=== PATIENT | male | born 1950 | race Caucasian/White ===

== ENCOUNTER 2017-06-23 06:00 | Inpatient (IN) | payer MEDICARE ==
[2017-06-09 11:05] LABS: BASOPHILS % 0.5 % (0.0-1.0); EOSINOPHILS # (AUTO) 0.3 (0.0-0.4); HEMATOCRIT 39.2 % (38.2-49.6); HEMOGLOBIN 13.2 g/dL (14.0-18.0); LYMPHOCYTES # (AUTO) 2.3 (1.0-3.2); LYMPHOCYTES % 29.4 % (18.0-39.1); MEAN CORPUSCULAR HEMOGLOBIN 31.2 pg (28-32); MEAN CORPUSCULAR HGB CONC 33.7 g/dL (31-35); MEAN CORPUSCULAR VOLUME 92.7 fL (81-99); MONOCYTES # (AUTO) 0.7 (0.2-0.8); MONOCYTES % 9.1 % (4.4-11.3); NEUTROPHILS # (AUTO) 4.4 (2.1-6.9); NEUTROPHILS % 56.6 % (38.7-80.0); PLATELET COUNT 268 x10e3/uL (140-360); RED BLOOD COUNT 4.23 x10e6/uL (4.3-5.7); RED CELL DISTRIBUTION WIDTH 13.8 % (11.7-14.4)
[2017-06-09 11:15] LABS: INR 0.87; PROTHROMBIN TIME 12.3 seconds (11.9-14.5)
[2017-06-09 11:22] LABS: ANION GAP 16.2 mmol/L (8-16); CALCIUM 9.9 mg/dL (8.4-10.2); CREATININE, SERUM 1.42 mg/dL (0.72-1.25); POTASSIUM 5.2 mmol/L (3.5-5.1)
[~2017-06-23] VITALS: Ht 172.7 cm; Wt 77.7 kg
[2017-06-23] MEDS ORDERED: OMEPRAZOLE40 MG PO (06:38)
[2017-06-23] MEDS ORDERED: LOSARTAN POTAS100 MG PO (06:38)
[2017-06-23] MEDS ORDERED: CILOSTAZOL100 MG PO (06:38)
[2017-06-23] MEDS ORDERED: ASPIRIN81 MG PO (06:38)
[2017-06-23] MEDS ORDERED: METOPROLOL TART25 MG PO (06:38)
[2017-06-23] MEDS ORDERED: AMLODIPINE BESY10 MG PO (06:38)
[2017-06-23] MEDS ORDERED: LOVASTATIN40 MG PO (06:38)
[2017-06-23 06:48] VITALS: BP 173/88
[2017-06-23] MEDS ORDERED: LIDOCAINE HCL 2% LOCAL 20 ML VIAL ONE ×2 (06:51→07:48)
[2017-06-23] MEDS ORDERED: IOPAMIDOL 370 MG/ML 200 ML INFUS..BTL INJ ONE ×3 (06:52→08:07)
[2017-06-23] MEDS ORDERED: HEPARIN SOD/SOD CHLORIDE 2,000 ML ONE (06:52)
[2017-06-23] MEDS ORDERED: FENTANYL CITRATE/PF 100MCG/2 ML INJ ONE (07:03)
[2017-06-23] MEDS ORDERED: HEPARIN SOD (PORCINE) 1000 UNIT/ML 30ML ONE (07:03)
[2017-06-23] MEDS ORDERED: SODIUM CHLORIDE 0.9% 1000ML 1,000 ML ONE (07:04)
[2017-06-23] MEDS ORDERED: MIDAZOLAM HCL 2 MG/2 ML VIAL ONE (07:04)
[2017-06-23] MEDS ORDERED: NITROGLYCERIN/D5W 200 MCG/ML 250 ML ONE (07:04)
[2017-06-23] MEDS ORDERED: BIVALIRUDIN 250 MG/VIAL IV ONE (07:56)
[2017-06-23] MEDS ORDERED: SODIUM CHLORIDE 0.9% 50ML 50 ML ONE (07:57)
[2017-06-23] MEDS ORDERED: ASPIRIN 325 MG TAB ONE (09:02)
[2017-06-23] MEDS ORDERED: CLOPIDOGREL BISULFATE 75 MG TAB ONE (09:02)
--- NOTE | 2017-06-23 10:05 | Operative Report ---
DATE OF PROCEDURE: June 23, 2017 PROCEDURES PERFORMED 1. Left heart catheterization. 2. Selective coronary angiogram. 3. Stent placement in the right coronary artery and obtuse marginal. INDICATIONS: Abnormal stress test. BLOOD LOSS: 10 mL. ANESTHESIA: One mg of Versed and 0.25 mg of fentanyl and 2% lidocaine for local anesthesia. DESCRIPTION OF PROCEDURE: After informed consent, the patient was brought to the cardiac catheterization laboratory and placed on the table. Both groins were painted and draped in a sterile fashion. Lidocaine injected in the right groin for local anesthesia. The right femoral artery was accessed by Seldinger technique, and a 5-Nepalese sheath was placed in the right femoral artery. However, the wire would not advance beyond the iliac region. The iliac artery was totally occluded. The left groin was painted and draped in a sterile fashion. Lidocaine injected in the left groin for local anesthesia. Left femoral artery was accessed by Seldinger technique, and a 5-Nepalese sheath was placed in the left femoral artery. Left main artery was cannulated using a JL4 5-Nepalese catheter. Coronary angiogram was performed and images obtained multiple views. The right coronary artery was cannulated using a 3DRC 5-Nepalese catheter. Coronary angiogram was performed and images were obtained in multiple views. The left main was cannulated using a 5-Nepalese sheath and the left main was cannulated using a 4-Nepalese catheter. Coronary angiogram was performed and images obtained in multiple views. Right coronary artery was cannulated using a 3DRC 5-Nepalese catheter. Coronary angiogram was performed and images obtained in multiple views. After reviewing the images, we decided to intervene in the 90% right coronary artery lesion and 90% obtuse marginal lesions. The 5-Nepalese sheath was exchanged for a 6-Nepalese sheath over a guidewire. The right coronary artery was cannulated using a 3DRC 6-Nepalese guide. A Hi-Torque floppy wire was advanced and placed into the midright coronary artery. We tried to pass a balloon. The guide would kick back. So Hi-Torque floppy wire was removed, and a Prowater wire was advanced into the distal right coronary artery. The right coronary artery lesion was dilated using a 2.5 x 12 mm Emerge balloon. The balloon was removed, and a 2.5 x 12 mm Synergy drug-eluting stent was deployed across the lesion at 12 atmospheres for about 20-25 seconds. Excellent result was obtained. Subsequently, attention was turned to the 90% obtuse marginal branch. The left main was cannulated using a XP 3.5, 6-Nepalese guide. A Prowater wire was manipulated and placed in the distal obtuse marginal branch. The lesion was dilated using a 2.5 x 12 mm Emerge balloon at 8 atmospheres for about 15 seconds. The balloon was removed and a 2.5 x 12 mm Synergy drug-eluting stent was deployed across the lesion at 10 atmospheres for about 20 seconds. All of this was performed under constant fluoroscopy guidance. Patient was given aspirin, Plavix and Angiomax during the procedure. Patient tolerated the procedure without any complications. REPORT LEFT MAIN: Normal caliber. Appears to be free of disease. LEFT ANTERIOR DESCENDING: Normal caliber and there is luminal irregularities. First diagonal branch has a 60% to 70% proximal lesion. The 2nd diagonal branch is a small branch and appears to be diffusely diseased. LEFT CIRCUMFLEX: Small vessel and there is luminal irregularities. OBTUSE MARGINAL BRANCH: Is large with a 90% mid-lesion. RIGHT CORONARY ARTERY: Is of normal caliber and 90% proximal lesion. Balloon used is a 2.5 x 12 mm Emerge stent used as a 2.5 x 16 mm Synergy drug-eluting stent placed in the proximal right coronary artery, and a 2.5 x 12 mm Synergy drug-eluting stent in the mid-obtuse marginal branch. There was zero percent residual stenosis and KAREEM-3 flow noted. Job#: [id number] MARY
[2017-06-23 14:14] VITALS: BP 163/79
[2017-06-23 17:00] VITALS: BP 128/57
[2017-06-23] MEDS: SODIUM CHLORIDE 0.9% 1000ML 1,000 ML IV SCH (18:31)
[2017-06-23 20:00] VITALS: BP 160/74
[2017-06-23 21:55] VITALS: BP 160/74
[2017-06-24] VITALS: BP 141/71
[2017-06-24 04:00] VITALS: BP 161/79
[2017-06-24 08:07] VITALS: BP 157/72
[2017-06-24] MEDS ORDERED: ASPIRIN325 MG PO (08:35)
[2017-06-24] MEDS ORDERED: PLAVIX75 MG PO (08:36)
[2017-06-24 08:39] VITALS: BP 157/72
[2017-06-24] MEDS ORDERED: CLOPIDOGREL BISULFATE 75 MG TAB PO SCH (09:00)
[2017-06-24] MEDS: SODIUM CHLORIDE 0.9% 1000ML 1,000 ML IV SCH (10:45)
[2017-06-24 12:06] VITALS: BP 181/84
== END 2017-06-24 12:25 | disposition home or self-care (01) | DRG 247 ==
LOC: CATH LAB 06:00 → MED/SURG 14:34
PROC: 027134Z Dilation of Coronary Artery, Two Arteries with Drug-eluting Intraluminal Device, Percutaneous Approach (ICD-10-PCS; principal; 2017-06-23)
PROC: 4A023N7 Measurement of Cardiac Sampling and Pressure, Left Heart, Percutaneous Approach (ICD-10-PCS; 2017-06-23)
PROC: B2111ZZ Fluoroscopy of Multiple Coronary Arteries using Low Osmolar Contrast (ICD-10-PCS; 2017-06-23)
DX: I25.10 Atherosclerotic heart disease of native coronary artery without angina pectoris (principal); I10 Essential (primary) hypertension; K21.9 Gastro-esophageal reflux disease without esophagitis; Z87.891 Personal history of nicotine dependence
CPT/HCPCS: 36140; 36415; 77002; 80048; 85025; 85610; 92921; 93005; 93458; C9600; J0583; J1644; J2001; J2250; J7030; Q9967

== ENCOUNTER → 2019-05-13 | Outpatient (CLI) | payer MEDICARE ==
[~2019-05-13] MED LIST: AMLODIPINE BESY10 MG PO; ASPIRIN325 MG PO; ASPIRIN81 MG PO; CILOSTAZOL100 MG PO; CLONIDINE HCL0.1 MG PO; HYDROCHLOROTHIA25 MG PO; LISINOPRIL40 MG PO; LOSARTAN POTAS100 MG PO; LOVASTATIN40 MG PO; METOPROLOL TART25 MG PO; OMEPRAZOLE40 MG PO; PLAVIX75 MG PO; REGADENOSON 0.4 MG/5 ML SYR IV ONE
--- NOTE | 2019-05-24 15:53 | Myoview Stress Test ---
DATE OF STUDY: 05/13/2019 08:39:00 Stress Test - Treadmill ONLY PROCEDURE TITLE: Rest/stress single isotope SPECT imaging with pharmacologic stress and gated SPECT imaging. INDICATION: Chest pain. PROCEDURE IN DETAIL: Pharmacologic stress testing was performed with regadenoson per protocol. The heart rate was 53 beats per minute at rest and increased to 101 beats per minute during the regadenoson infusion. The resting blood pressure was 141/70 mmHg and increased to 154/77 mmHg, which is a normal response. The resting electrocardiogram demonstrated normal sinus rhythm. There were no ST-segment changes suggestive of myocardial ischemia. IMPRESSION: Myocardial perfusion imaging was performed at rest following the injection of 11 mCi of tetrofosmin. At peak pharmacologic effect, the patient was injected with 31.6 mCi of tetrofosmin. Gated post-stress tomographic imaging was performed. FINDINGS: The overall quality of study is fair. Left ventricular cavity is noted to be normal size on the rest and stress studies. SPECT images demonstrate small mild perfusion defect in the inferior wall at rest that is slightly worse on stress. Gated SPECT imaging reveals normal myocardial thickening and wall motion. The left ventricular ejection fraction was calculated to be 53%. IMPRESSION: Myocardial perfusion imaging is abnormal. There is a small area of ischemia in the inferior wall. Overall, left ventricular systolic function was normal without regional wall motion abnormalities. Rupa Ojeda MD ABS/MODL /[id number]
== END ==
LOC: NM 08:24
PROVIDERS: ATTEND Internal Medicine
DX: R07.9 Chest pain, unspecified (principal)
CPT/HCPCS: 78452; 93017; 93306; A9502; J2785

== ENCOUNTER 2019-06-20 12:05 | Observation (INO) | payer MEDICARE ==
[2019-06-17 12:13] LABS: BASOPHILS % 0.4 % (0.0-1.0); EOSINOPHILS # (AUTO) 0.3 (0.0-0.4); EOSINOPHILS % 3.6 % (0.0-6.0); HEMATOCRIT 34.4 % (38.2-49.6); HEMOGLOBIN 11.5 g/dL (14.0-18.0); LYMPHOCYTES # (AUTO) 3.4 (1.0-3.2); LYMPHOCYTES % 39.6 % (18.0-39.1); MEAN CORPUSCULAR HEMOGLOBIN 29.9 pg (28-32); MEAN CORPUSCULAR HGB CONC 33.4 g/dL (31-35); MEAN CORPUSCULAR VOLUME 89.6 fL (81-99); MONOCYTES # (AUTO) 1.1 (0.2-0.8); MONOCYTES % 12.9 % (4.4-11.3); NEUTROPHILS # (AUTO) 3.7 (2.1-6.9); NEUTROPHILS % 43.1 % (38.7-80.0); PLATELET COUNT 267 x10e3/uL (140-360); RED BLOOD COUNT 3.84 x10e6/uL (4.3-5.7); RED CELL DISTRIBUTION WIDTH 14.2 % (11.7-14.4)
[2019-06-17 12:32] LABS: ALBUMIN 4.4 g/dL (3.5-5.0); ALBUMIN/GLOBULIN RATIO 1.5 (0.8-2.0); ANION GAP 15.9 mmol/L (8-16); CALCIUM 9.6 mg/dL (8.4-10.2); CREATININE, SERUM 2.22 mg/dL (0.72-1.25); POTASSIUM 4.9 mmol/L (3.5-5.1)
[2019-06-17 12:56] LABS: INR 0.89; PROTHROMBIN TIME 12.5 seconds (11.9-14.5)
--- NOTE | 2019-06-17 14:11 | NUR ---
Dr. Jil Long notified of creatinine 2.[address] Jil Long ordered to instruct patient to discontinue hydrochlorothiazide today and increase hydration.
--- NOTE | 2019-06-17 14:30 | NUR ---
Called and spoke to patient. Patient instructed to discontinue hydrochlorothiazide and increase hydration. Patient verbalized understanding and has no questions at this time.
[~2019-06-20] VITALS: Ht 172.7 cm; Wt 70.3 kg
[~2019-06-20 12:05] MED LIST changes: -REGADENOSON 0.4 MG/5 ML SYR IV ONE
--- OUTSIDE RECORDS SUMMARY | 2019-06-20 12:11 | XMS REPORT ---
Author Author [facility] Address Unknown Phone Unavailable Care Team Providers Care Key Attendant Name Role Phone BLAND, Raghavendra JASON Unavailable Unavailable MERCEDES RASHEED Unavailable Unavailable Payers Payer Name Policy Type Policy Number Effective Date Expiration Date Problems This patient has no known problems. Allergies, Adverse Reactions, Alerts Allergy Name Allergy Type Status Severity Reaction(s) Onset Date Inactive Date Treating Clinician Comments No Known Allergies DA Active U 2018-09-25 00:00:00 No Known Drug Intolerances DA Active U 2010-03-19 00:00:00 Medications This patient has no known medications. Encounters Start Date/Time End Date/Time Encounter Type Admission Type Attending Clinicians Care Facility Care Department Encounter ID 2018-12-06 00:00:00 2018-12-06 00:00:00 Outpatient [facility] [id number] 2018-11-08 07:45:45 2018-11-08 07:45:45 Outpatient [facility] [id number] 2018-10-25 00:00:00 2018-10-25 00:00:00 Outpatient [facility] [id number] 2018-10-11 10:14:51 2018-10-11 10:14:51 Outpatient [facility] [id number] 2018-10-04 10:58:40 2018-10-04 10:58:40 Outpatient [facility] [id number] 2018-09-26 06:25:43 2018-09-26 06:25:43 Emergency [facility] [id number] 2018-09-26 03:52:14 2018-09-26 03:52:14 Emergency [facility] [id number] 2018-09-26 03:42:01 2018-09-26 03:42:01 Emergency [facility] [id number] 2018-09-26 00:00:00 2018-09-26 00:00:00 Emergency [facility] [id number] 2018-09-26 00:00:00 2018-09-26 00:00:00 [facility] [id number] Results Test Description Test Time Test Comments Text Results Atomic Results Result Comments Stress Test - Treadmill ONLY 2019-05-24 11:41:00 [place] [address] Patient Name : ANDRES BOSWELL MR #: [id number] : 1950 Age/Sex: 69/M Adm Physician : EREN BLAND MD Admit Date : 05/13/19 Location : [place] Room/Bed : REPORT: Myoview Stress Test DATE OF STUDY: 05/13/2019 08:39:00 Stress Test - Treadmill ONLY PROCEDURE TITLE: Rest/stress single isotope SPECT imaging with pharmacologic stress and gated SPECT imaging. INDICATION: Chest pain. PROCEDURE IN DETAIL: Pharmacologic stress testing was performed with regadenoson per protocol. The heart rate was 53 beats per minute at rest and increased to 101 beats per minute during the regadenoson infusion. The resting blood pressure was 141/70 mmHg and increased to 154/77 mmHg, which is a normal response. The resting electrocardiogram demonstrated normal sinus rhythm. There were no ST-segment changes suggestive of myocardial ischemia. IMPRESSION: Myocardial perfusion imaging was performed at rest following the injection of 11 mCi of tetrofosmin. At peak pharmacologic effect, the patient was injected with 31.6 mCi of tetrofosmin. Gated post-stress tomographic imaging was performed. FINDINGS: The overall quality of study is fair. Left ventricular cavity is noted to be normal size on the rest and stress studies. SPECT images demonstrate small mild perfusion defect in the inferior wall at rest that is slightly worse on stress. Gated SPECT imaging reveals normal myocardial thickening and wall motion. The left ventricular ejection fraction was calculated to be 53%. IMPRESSION: Myocardial perfusion imaging is abnormal. There is a small area of ischemia in the inferior wall. Overall, left ventricular systolic function was normal without regional wall motion abnormalities. 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 Other regional osseous structures are intact. Bony trabecular pattern is unremarkable. No cortical destruction or periosteal reaction. Mild degenerative changes of the triscaphe, 1st carpometacarpal, 1st metacarpophalangeal, and polyarticular DIP joints. 2nd through 5th finger soft tissue trauma and swelling. No radiopaque foreign body. IMPRESSION: Nondisplaced fracture of the 5th distal phalangeal tuft. No radiopaque foreign body. at 1927 Reported and signed by: Hetal Melenedz D.O. CC: Israel Gore MD; TANG RICHTER MD; Francois Cruz NP Technologist: Trish Gutiérrez Trnscrd Date/Time/By: 09/25/2018 (1926) : By: [email or web address] Orig Print D/T: S: 09/25/2018 (1929) PAGE 1 Signed Report CTA ABD/PEL/RUN OFF [place] [address] Patient Name: ANDRES BOSWELL MR #: [id number] : 1950 Age/Sex: 67/M Req #: [id number] Adm Physician: Ordered by: MERCEDES RASHEED MD Report #: [id number] Location: CT Room/Bed: Procedure: [id number] CT/CTA ABD/PEL/RUN OFF Exam Date: 02/17/17 Exam Time: 1020 REPORT STATUS: Signed CT angiogram abdomen, pelvis and lower extremities, February 17, 2017 Clinical history: Blood clots in legs. Atherosclerosis of the [place] arteries. Comparison: None Technique: Arterial phase CT of the abdomen, pelvis and lower extremities was performed after administration of 100 mL Isovue-370 intravenous contrast. Multiplanar reformatted images generated from source data. 3-D volume injured images generated at an independent off-line workstation under physician supervision. DLP: 695.54 Findings: Vascular: Aorta Dimensions: Diaphragmatic hiatus: 2.1 cm Renal arteries: 1.6 cm Infrarenal aorta: 1.4 cm The abdominal aorta demonstrates circumferential calcified and noncalcified noncalcified atheromatous plaque. Within the infrarenal aorta is a short segment 55% stenosis (image 57, series 3 and 52, 401). Celiac: Frw-dwio-bwvnejym osteal calcification. SMA: Nonflow limiting calcified and noncalcified atheromatous plaque dominant within the proximal segment. AUSTEN: Patent Renal arteries: Right: Nonflow limiting proximal segment calcified and noncalcified plaque. Single artery. Left: Greater than 60% proximal segment 1.7 cm length stenosis (image 56, series 401). 2 additional small caliber accessory left renal arteries (3 total arteries). Extremities: Right: Common iliac: 1 cm diameter. Extensive calcified and noncalcified atheromatous plaque with greater than 60% stenosis (image 66, series 3). Patent internal iliac with extensive atherosclerosis. External iliac: Patent, normal caliber. Mild calcified and noncalcified atheromatous plaque. Common femoral: Posterior dominant calcified and noncalcified atheromatous plaque (less than 50% stenosis). Superficial femoral: Origin occlusion with distal segment reconstitution. Profunda femoris: Patent. Popliteal: Extensive calcified and noncalcified atheromatous plaque within the proximal segment (image 195, series 3) with greater than 50% stenosis. Mid and distal segments are patent without gross flow limiting stenosis, though diminutive. Anterior tibial: Patent with intact runoff to the dorsalis pedis. No flow-limiting stenosis. Tibioperoneal trunk: Calcified and noncalcified atheromatous plaque with at least 50% stenosis. Peroneal artery: Patent with intact runoff to the ankle. Posterior tibial: Extensive proximal and mid segment calcification. Diminutive runoff to the plantar arteries. Questionably patent lateral plantar artery. Medial plantar artery not conspicuous. Left: Common iliac: Diameter 1.1 cm. Extensive calcified and noncalcified atheromatous plaque with greater than 60% stenosis (image 55, series 401). Proximally patent internal iliac with extensive atherosclerosis. External iliac: Patent, normal caliber. Mild calcified and noncalcified atheromatous plaque. Common femoral: Posterior dominant calcified and noncalcified atheromatous plaque (less than 50% stenosis). Superficial femoral: Greater than 50% stenotic and proximal segment with an 12 cm long mid segment occlusion and distal segment reconstitution. Profunda femoris: Patent. Popliteal: Proximal segment calcified and noncalcified atheromatous plaque with greater than 60% stenosis (image 73, series 403). Mid and distal segments normal caliber. Anterior tibial: Patent proximal and mid segments with diminutive distal segment with questionable diminutive dorsalis pedis flow. Tibioperoneal trunk: Calcified and noncalcified atheromatous plaque with less than 50% stenosis. Peroneal artery: Patent with intact runoff to the ankle. Posterior tibial: Extensive diffuse calcification limiting evaluation of patency. No definite plantar artery flow. Nonvascular: Bibasilar interstitial scar. No pleural effusions. Normal heart size. Liver: Normal Gallbladder: Normal Pancreas: Normal Spleen: Normal Adrenal glands: Normal Kidneys: Normal Ureters and urinary bladder: Normal Prostate and seminal vesicles: Normal Bowel: Norm al caliber. Normal appendix. Small sliding-type hiatal hernia. Diverticulosis of the descending and sigmoid colon. Peritoneum: Normal Lymph nodes: Normal Skeleton: Intact. Soft tissues: Normal Impression: 1. Extensive [place] artery atherosclerosis including 55% stenosis of the infrarenal aorta, bilateral common iliac artery stenosis, bilateral superficial femoral artery occlusion and multifocal stenosis of the popliteal and infrapopliteal vasculature bilaterally. 2. Greater than 60% main left renal artery stenosis. 3. Diverticulosis. Small sliding-type hiatal hernia. This report was generated with voice-recognition technology. Errors in hay rake operator can occur. Please interpret accordingly and contact a radiologist if there are any questions regarding the report. Signed by: Dr. Justus Sigala M.D. on 02/19/2017 10:46 AM Dictated By: JUSTUS SIGALA MD [id number] Transcribed By: SONG on 02/19/17 1046 COPY TO: MERCEDES RASHEED MD
[2019-06-20 13:24] VITALS: BP 140/62
[2019-06-20 13:36] LABS: CREATININE, SERUM 1.46 mg/dL (0.72-1.25)
[2019-06-20] MEDS ORDERED: MIDAZOLAM HCL 2 MG/2 ML VIAL ONE ×4 (14:25→16:35)
[2019-06-20] MEDS ORDERED: IOPAMIDOL 300MG/ML 100 ML INFUS..BTL IV ONE (14:25)
[2019-06-20] MEDS ORDERED: SODIUM CHLORIDE 0.9% 1000ML 1,000 ML ONE (14:25)
[2019-06-20] MEDS ORDERED: LIDOCAINE HCL 2% LOCAL 20 ML VIAL ONE (14:25)
[2019-06-20] MEDS ORDERED: HEPARIN SOD (PORCINE) 1000 UNIT/ML 30ML ONE (14:25)
[2019-06-20] MEDS ORDERED: FENTANYL CITRATE/PF 100MCG/2 ML INJ ONE ×2 (14:25→16:09)
[2019-06-20] MEDS ORDERED: HEPARIN SOD/SOD CHLORIDE 2,000 ML ONE (14:26)
[2019-06-20] MEDS ORDERED: ASPIRIN 325 MG TAB ONE (15:29)
[2019-06-20] MEDS ORDERED: TICAGRELOR 90 MG TABLET ONE (15:29)
[2019-06-20] MEDS ORDERED: CLOPIDOGREL BISULFATE 75 MG TAB ONE (15:52)
[2019-06-20] MEDS ORDERED: SODIUM CHLORIDE 0.9% 1000ML 2,000 ML ONE (16:14)
[2019-06-20] MEDS ORDERED: VERAPAMIL HCL 2.5 MG/ML 2 ML VIAL ONE (16:14)
--- NOTE | 2019-06-20 16:25 | NUR ---
Notified Service Porter Nate of request of observation/telemetry bed.
--- NOTE | 2019-06-20 16:55 | NUR ---
Notified Amber in admissions patient will be going to room 215 and asked to have patient flipped to virtual bed. Notified Amber bed assigned on Teletracking. Amber verbalized understanding and had no questions at this time.
--- NOTE | 2019-06-20 17:45 | NUR ---
Pt received from photographic laboratory technician at this time. Pt is aox4 and able to verbalize needs. Denies any pain at this time. Dressing to right groin in place with some dry blood noted. to site. Pt is to remain on bed rest until 1900 tonight.
[2019-06-20 18:08] VITALS: BP 160/84
[2019-06-20 20:00] VITALS: BP 168/84
[2019-06-20 21:00] VITALS: BP 168/84
[2019-06-20] MEDS ORDERED: ATORVASTATIN 40 MG TAB PO SCH (21:00)
[2019-06-20] MEDS ORDERED: ATORVASTATIN 20 MG TAB PO SCH (21:00)
--- NOTE | 2019-06-20 22:15 | NUR ---
NOTIFIED DR BOWLING THAT RIGHT GROIN SITE WAS BLEEDING AND PT C/O PAIN TO LEFT LEG. COMPLETE DRESSING CHANGE AND APPLIED PRESSURE. NO S/S OF BLEEDING ANY MORE. NEW ORDER RECEIVED FOR PAIN MED.
[2019-06-20] MEDS ORDERED: MORPHINE SULFATE INJ 4 MG/ML INJ 1ML IV STA (22:29)
[2019-06-21] VITALS: BP 143/82
[2019-06-21 04:00] VITALS: BP 155/87
[2019-06-21 08:00] VITALS: BP 153/81
[2019-06-21 08:22] VITALS: BP 153/81
[2019-06-21] MEDS ORDERED: CLOPIDOGREL BISULFATE 75 MG TAB PO SCH (09:00)
[2019-06-21] MEDS ORDERED: ASPIRIN 81 MG CHEW TAB PO SCH (09:00)
[2019-06-21 11:50] VITALS: BP 187/98
[2019-06-21] MEDS ORDERED: ONDANSETRON HCL INJ 2MG/ML 2ML 2 MG/ML VIAL IV PRN (13:00)
[2019-06-21 13:31] LABS: BASOPHILS % 0.2 % (0.0-1.0); EOSINOPHILS # (AUTO) 0.1 (0.0-0.4); EOSINOPHILS % 0.7 % (0.0-6.0); HEMATOCRIT 33.6 % (38.2-49.6); HEMOGLOBIN 11.5 g/dL (14.0-18.0); LYMPHOCYTES # (AUTO) 1.5 (1.0-3.2); LYMPHOCYTES % 17.2 % (18.0-39.1); MEAN CORPUSCULAR HEMOGLOBIN 30.7 pg (28-32); MEAN CORPUSCULAR HGB CONC 34.2 g/dL (31-35); MEAN CORPUSCULAR VOLUME 89.8 fL (81-99); MONOCYTES # (AUTO) 0.7 (0.2-0.8); MONOCYTES % 7.7 % (4.4-11.3); NEUTROPHILS # (AUTO) 6.6 (2.1-6.9); NEUTROPHILS % 73.8 % (38.7-80.0); PLATELET COUNT 282 x10e3/uL (140-360); RED BLOOD COUNT 3.74 x10e6/uL (4.3-5.7); RED CELL DISTRIBUTION WIDTH 14.2 % (11.7-14.4)
[2019-06-21 13:50] LABS: ANION GAP 14.3 mmol/L (8-16); CALCIUM 9.6 mg/dL (8.4-10.2); CREATININE, SERUM 1.29 mg/dL (0.72-1.25); POTASSIUM 4.3 mmol/L (3.5-5.1)
[2019-06-21] MEDS ORDERED: AMLODIPINE BESYLATE 10 MG TAB PO SCH (14:00)
[2019-06-21 16:14] VITALS: BP 110/65
[2019-06-21] MEDS ORDERED: CILOSTAZOL 100 MG TAB PO SCH (17:00)
[2019-06-21] MEDS ORDERED: CLONIDINE HCL 0.1 MG TAB PO SCH (17:00)
--- NOTE | 2019-06-21 17:10 | NUR ---
Pt discharged home at this time. . 0 s/s of acute distress noted at time of discharge. Pt verbalized understanding of all discharge instructions and follow up appts.
[2019-06-21] MEDS ORDERED: SIMVASTATIN 40 MG TAB PO SCH (21:00)
[2019-06-22] MEDS ORDERED: PANTOPRAZOLE SOD 40 MG TABEC PO SCH (07:30)
[2019-06-22] MEDS ORDERED: SIMVASTATIN 20 MG TAB PO SCH (09:00)
[2019-06-22] MEDS ORDERED: CLOPIDOGREL BISULFATE 75 MG TAB PO SCH (09:00)
[2019-06-22] MEDS ORDERED: HYDROCHLOROTHIAZIDE 25 MG TAB PO SCH (09:00)
[2019-06-22] MEDS ORDERED: ASPIRIN 325 MG TAB PO SCH (09:00)
[2019-07-21] MEDS ORDERED: LATANOPROST2.5 ML OP (12:20)
[2019-07-21] MEDS ORDERED: LISINOPRIL10 MG PO (12:20)
--- NOTE | 2019-07-29 14:18 | Operative Report ---
DATE OF PROCEDURE: 06/20/2019 SURGEON: Jeff Long MD INDICATION FOR PROCEDURE: Chest pain, abnormal stress test and claudication. PREPROCEDURE ASSESSMENT: The risks, benefits, and alternatives to treatment were explained to the patient prior to the procedure. The patient was deemed to be an appropriate candidate for moderate sedation. Informed consent was obtained and documented in the medical record. MEDICATIONS: Please see nursing notes for medications administered throughout the procedure. PROCEDURES PERFORMED: 1. Coronary angiography, right femoral approach. 2. Left heart catheterization. 3. PCI to the RCA using drug-eluting stent x1. 4. Abdominal aortography. 5. Bilateral peripheral angiography. 6. Catheter placement, third order. 7. Percutaneous transluminal angioplasty and arthrectomy of the left superficial femoral artery, RESEARCH TEST ENGINE OPERATOR. 8. Vascular closure device ProGlide. 9. Moderate sedation, supervision time 125 minute. PROCEDURE DETAILS: The patient was brought to the cardiac catheterization laboratory in a fasting state. Right groin was prepped and draped in a sterile fashion. A 6-Czech sheath was inserted at right common femoral artery using modified Seldinger technique. Coronary angiography was performed using JL4 and JR4 5-Czech catheters. This demonstrated 99% lesion of the proximal RCA with KAREEM-2 flow distally. We decided to proceed with PCI to the RCA or PCI of the RCA. A JR4 6-Czech guide catheter was used. This provided adequate support. Lesion was wired using run-through wire without significant difficulty. Lesion was predilated using [place] [employer] Emerge 2.0 x 12 mm balloon at 20 atmospheres. Stenting was performed using a Synergy 2.5 x 12 mm drug-eluting stent deployed at 15 atmospheres for 30 seconds. The patient tolerated the procedure well. All catheters were removed over a wire. Final angiogram demonstrated excellent result without significant thrombus, dissection, or spasm with KAREEM-3 flow. ACT near 300 was maintained throughout the procedure using IV boluses. Then, we proceeded with the peripheral part of his intervention. Abdominal aortography was performed using 5-Czech Omni Flush catheter. Ora Advantage wire was advanced through the Omni Flush catheter into the contralateral iliac artery and Omni Flush catheter was then advanced over the Ora Advantage into the left common femoral artery. Multiple digital subtraction angiography pictures were taken of the left lower extremity. This demonstrated long segment RESEARCH TEST ENGINE OPERATOR of the mid and distal superficial femoral artery as well as RESEARCH TEST ENGINE OPERATOR of tibioperoneal, posterior tibial and peroneal arteries with dominant anterior tibial artery and good one vessel runoff to the foot. Given severe claudication symptoms, we decided to proceed with intervention to the SFA with a 6-Czech short sheath was exchanged for a destination sheath. Lesion was crossed using multiple wires including to remove run-through . Lesion was predilated using Ultraverse 3 x 220 mm balloon followed by arthrectomy with Diamondback 360, 1.5 solid bur at low and medium setting run respectively. We then proceeded to treat the lesion using a Lutonix 5.0 x 220 mm drug-coated balloon at supranominal pressures for 4 minute followed by an Ultraverse 6.0 x 150 mm balloon more proximally. This resulted in excellent angiographic result with KAREEM-3 flow in a straight line runoff to the foot without any residual dissection, thrombus, or spasm. The destination sheath was then exchanged again for a short 6-Czech sheath and a runoff angiogram of the right lower extremity was performed through the short 6-Czech sheath. This demonstrated again RESEARCH TEST ENGINE OPERATOR of the right SFA in right posterior tibial artery with 2-vessel runoff to the foot. Access site was closed using a ProGlide vascular closure device after sheath removal. The patient tolerated the procedure well. There were no immediate complications. Dual antiplatelet therapy with aspirin and Plavix was loaded at the end of the case. SIGNIFICANT FINDINGS: Coronary angiography demonstrated a right dominant coronary system with a 99% lesion of the proximal RCA with KAREEM-2 flow distally. We treated with a drug-eluting stent. LAD and OM system demonstrated mild plaquing only without significant obstruction. Peripheral angiography findings as described in detail above. GRAFTS AND IMPLANTS: Drug-eluting stent x1, ProGlide vascular closure device. SPECIMEN REMOVED: None. ESTIMATED BLOOD LOSS: 20 mL. COMPLICATIONS: None. FINAL RECOMMENDATIONS: 1. Continue aspirin 81 mg daily for life and Plavix 75 mg daily for at least 1 year. 2. Continue optimal medical therapy and risk factor control. 3. Staged intervention to the right SFA RESEARCH TEST ENGINE OPERATOR in a few weeks. Jeff Long MD KVP/MODL /[id number]
== END 2019-06-21 17:08 | disposition home or self-care (01) ==
LOC: CATH LAB 12:05 → MED/SURG2 17:15
PROVIDERS: ADMIT Internal Medicine; ATTEND Internal Medicine
DX: I25.118 Atherosclerotic heart disease of native coronary artery with other forms of angina pectoris (principal); Z01.812 Encounter for preprocedural laboratory examination; I10 Essential (primary) hypertension; E78.00 Pure hypercholesterolemia, unspecified; I73.9 Peripheral vascular disease, unspecified; Z82.49 Family history of ischemic heart disease and other diseases of the circulatory system
CPT/HCPCS: 36247; 37225; 75625; 75710; 76937; 93454; C9600; 36415; 37224; 75716; 80048; 80053; 82565; 84520; 85025; 85610; 92928; 99152; 99153; C1724; C1725; C1760; C1769; C1874; C1887; C2623; G0378; J1644; J2001; J2250; J2270; J2405; J3010; J7030; Q9967

== ENCOUNTER → 2019-07-21 | Outpatient (CLI) | payer MEDICARE ==
[~2019-07-21] MED LIST changes: +LATANOPROST2.5 ML OP; +LISINOPRIL10 MG PO
== END ==
LOC: DX 14:51 → EDSTATUS 07-26 12:00
PROVIDERS: ATTEND Internal Medicine Gastroenterology
DX: Z01.818 Encounter for other preprocedural examination (principal); Z12.11 Encounter for screening for malignant neoplasm of colon; K21.9 Gastro-esophageal reflux disease without esophagitis; Z53.8 Procedure and treatment not carried out for other reasons
CPT/HCPCS: 93005

== ENCOUNTER → 2019-09-02 | Outpatient (CLI) | payer MEDICARE ==
[~2019-09-02] MED LIST changes: +IOPAMIDOL 370 MG/ML 200 ML INFUS..BTL INJ ONE; +SODIUM CHLORIDE 0.9% 0 ML ONE
[2019-09-02 09:06] LABS: CREATININE, SERUM 2.2 mg/dL (0.72-1.25)
== END ==
LOC: CT 08:29
PROVIDERS: ATTEND Thoracic Surgery (Cardiothoracic Vascular Surgery)
DX: I73.9 Peripheral vascular disease, unspecified (principal)
CPT/HCPCS: 36415; 82565; 84520; J7050; Q9967

== ENCOUNTER → 2019-09-23 | Outpatient (CLI) | payer OTHER, MEDICARE ==
[~2019-09-23] MED LIST changes: -SODIUM CHLORIDE 0.9% 0 ML ONE; +SODIUM CHLORIDE 0.9% 100 ML ONE; +SODIUM CHLORIDE 0.9% 500ML 500 ML ONE
[2019-09-23 09:10] LABS: CREATININE, SERUM 1.64 mg/dL (0.72-1.25)
--- NOTE | 2019-09-26 10:28 | Diagnostic Imaging Report ---
Abdomen and Pelvis CTA with RUNOFF PROTOCOL WITH IV CONTRAST. INDICATION: Peripheral arterial disease COMPARISON: Report of CT abdomen and pelvis of 02/17/2017 (images not available for comparison). TECHNIQUE: Abdomen and pelvis and lower extremities were scanned utilizing a multidetector helical scanner from the lung base to the toes after administration of IV contrast. Coronal and sagittal reformations were obtained. 3D post-processing of the images was performed, and the post-processed images were used in interpretation. CTA runoff protocol was performed. IV CONTRAST: 100mL of Isovue 370 ORAL CONTRAST: None RADIATION DOSE: Total DLP: 612 mGy*cm FINDINGS: VESSELS: There are moderate calcified and noncalcified atherosclerotic plaques in the aorta and its major branches. There is no evidence of a flap within the aorta to suggest a dissection. The celiac artery, superior mesenteric artery, and inferior mesenteric artery are patent. There is a single right renal artery and a single left renal artery, both of which are patent. Right lower extremity: There is substantial multifocal calcified and noncalcified atherosclerotic plaque at the right common iliac artery with resulting severe multifocal luminal narrowing. Moderate luminal narrowing of the right external iliac artery and right common femoral artery. Severe right superficial femoral artery stenosis just beyond its origin. There is a segment of complete occlusion of the mid superficial femoral artery with reconstitution of the proximal popliteal artery via collaterals from the profunda femoris. Moderate atherosclerotic calcifications of the popliteal artery resulting in multifocal moderate to severe luminal narrowing. Moderate atherosclerotic calcifications of the posterior tibial artery. Two-vessel runoff to the level of the ankle via the anterior tibial and peroneal arteries. Left lower extremity: There is substantial multifocal calcified and noncalcified atherosclerotic plaque of the left common iliac artery resulting in multifocal moderate luminal narrowing. Moderate atherosclerotic plaque of the external iliac artery and common femoral artery with multifocal moderate narrowing. Moderate multifocal narrowing of the superficial femoral artery. The profunda femoris is patent. Moderate multifocal narrowing of the popliteal artery. Atherosclerotic calcifications of the posterior tibial artery. Two-vessel runoff to the level of the ankle via the anterior tibial and peroneal arteries. NON-VASCULAR: LOWER THORAX: Bibasilar dependent subsegmental atelectasis. Thin-walled cysts at the right lung base. HEPATOBILIARY: Diffuse hepatic steatosis. No focal liver lesion. Unremarkable gallbladder. SPLEEN: No splenomegaly. PANCREAS: No focal masses or ductal dilatation. ADRENALS: No adrenal nodules. KIDNEYS/URETERS: No hydronephrosis, stones, or solid mass lesions. PELVIC ORGANS/BLADDER: Unremarkable. PERITONEUM / RETROPERITONEUM: No free air or fluid. LYMPH NODES: No lymphadenopathy. GI TRACT: Severe sigmoid and distal descending colon diverticulosis without CT evidence of diverticulitis. No abnormal bowel thickening. No bowel obstruction. BONES AND SOFT TISSUES: No acute osseous injury. No suspicious lytic or blastic lesions. IMPRESSION: Multifocal bilateral lower extremity atherosclerotic disease as above resulting in multifocal stenoses most notably with severe right SFA stenosis just beyond its origin and a segment of complete occlusion of the mid right SFA with reconstitution at the right popliteal artery. Two-vessel runoff to both ankles via the anterior tibial and peroneal arteries. Signed by: Jaime Houston MD on 09/26/2019 10:24 AM
== END ==
LOC: CT 08:15
PROVIDERS: ATTEND Thoracic Surgery (Cardiothoracic Vascular Surgery)
DX: I73.9 Peripheral vascular disease, unspecified (principal)
CPT/HCPCS: 36415; 75635; 82565; 84520; 96360; J7040; J7050; Q9967

== ENCOUNTER → 2020-12-20 | Outpatient (CLI) | payer MEDICARE ==
[~2020-12-20] MED LIST changes: -IOPAMIDOL 370 MG/ML 200 ML INFUS..BTL INJ ONE; +REGADENOSON 0.4 MG/5 ML SYR IV ONE; -SODIUM CHLORIDE 0.9% 100 ML ONE; -SODIUM CHLORIDE 0.9% 500ML 500 ML ONE
== END ==
LOC: NM 08:29
PROVIDERS: ATTEND Internal Medicine
DX: R07.9 Chest pain, unspecified (principal)
CPT/HCPCS: 78452; 93017; 93306; A9502; J2785